=== PATIENT | female | born 1965 | race Caucasian/White ===

== ENCOUNTER 2018-10-15 21:00 | Inpatient (IN) | payer SELFPAY ==
--- NOTE | 2018-10-15 22:29 | ULT ---
[place] [facility] [place] upper quadrant ultrasound: 10/15/2018 COMPARISON: None HISTORY: Chest pain and abdominal pain TECHNIQUE: Multiplanar grayscale sonographic imaging of the right upper quadrant obtained. FINDINGS: Imaged pancreas is unremarkable. However, the majority of the body and tail are obscured by bowel gas. The hepatic parenchyma is heterogeneous and echogenic, suggesting a degree of steatosis. The common b ile duct is dilated, measuring at least 8 mm. Sludge is seen layering within the gallbladder. The gallbladder wall is mildly thickened measuring 3- 4 mm. No gallstones are seen. The post doc fellowship reports a positive Melo's sign. Right kidney measures 12.9 cm in craniocaudal dimension and demonstrates no evidence for stone, hydro nephrosis, or mass lesion. IMPRESSION: Mild gallbladder wall thickening with a positive Melo sign and gallbladder sludge. No c holelithiasis. Findings may signify acalculus cholecystitis. Pancreas is not well assessed on this ex am. The CBD is dilated, which may signify nonvisualized choledocholithiasis.
[2018-10-16 01:48] LABS: #Basophils 0.1 thou/uL (0.0-0.2); #Eosinphils 0.1 thou/uL (0.0-0.7); #Lymphocytes 2.2 thou/uL (1.20-3.40); #Monocytes 0.5 thou/uL (0.11-0.59); #Neutrophils 7.4 thou/uL (1.40-6.50); %Basophils 0.5 % (0.0-1.0); %Eosinophils 0.7 % (0.0-10.0); %Lymphocytes 21.6 % (21.0-51.0); %Monocytes 5.1 % (0.0-10.0); Hemoglobin 12.1 g/dL (12.0-16.0); Mean Corpuscular HGB CONC 34.4 g/dL (32.0-36.0); Mean Corpuscular Hemoglobin 30.1 pg (27.0-31.0); Mean Corpuscular Volume 87.3 fL (78.0-98.0); Mean Platelet Volume 6.6 fL (7.4-10.4); Platelet Count 200 thou/uL (130-400); RBC Distribution Width 12.3 % (11.5-14.5); Red Blood Cell (RBC) Count 4.03 mill/uL (4.20-5.40); White Blood Cell (WBC) Count 10.3 thou/uL (4.8-10.8)
[2018-10-16 02:11] LABS: ALT (SGPT) 272 U/L (8-55); AST (SGOT) 168 U/L (5-34); Albumin 3.6 g/dL (3.5-5.0); Alkaline Phosphatase 152 U/L (40-150); Anion Gap 11 mmol/L (10-20); BUN (Urea Nitrogen) 7 mg/dL (9.8-20.1); Bilirubin, Total 0.8 mg/dL (0.2-1.2); Calc. Creatinine Clearance 0 mL/min (70-130); Carbon Dioxide 24 mmol/L (22-29); Chloride 107 mmol/L (98-107); Estimated GFR-MDRD Greater than 90; Globulin 2.6 g/dL (2.4-3.5); Glucose 133 mg/dL (70-105); Potassium 3.2 mmol/L (3.5-5.1); Protein, Total 6.2 g/dL (6.0-8.3); Sodium 139 mmol/L (136-145)
[2018-10-16] MEDS ORDERED: Acetaminophen 325 MG TAB PO PRN ×2 (02:23→07:43)
[2018-10-16] MEDS ORDERED: Ondansetron PF 4 MG/2 ML Vial IVP PRN ×2 (02:23→07:43)
[2018-10-16] MEDS ORDERED: Sodium Chloride 0.9% 1,000 ML IV SCH (02:23)
[2018-10-16] MEDS ORDERED: Ondansetron ODT 4 MG TAB SL PRN (02:23)
[2018-10-16 02:56] VITALS: BMI 35.2
[2018-10-16] MEDS ORDERED: Piperacillin/Tazobactam 3.375 GM in Sodium Chloride 0.9% 100 ML IVPB SCH (03:00)
[2018-10-16] MEDS ORDERED: Ondansetron ODT 4 MG TAB PO PRN (07:43)
[2018-10-16] MEDS ORDERED: Calcium Carbonate 500 MG ChewTAB PO PRN (07:43)
[2018-10-16] MEDS ORDERED: Sodium Chloride 0.65% Nasal 44 ML BOT EA NARE PRN (07:43)
[2018-10-16] MEDS ORDERED: Diabetic Tussin 200 MG/10 ML UDCUP PO PRN (07:43)
[2018-10-16] MEDS ORDERED: Zolpidem Tartrate 5 MG TAB PO PRN (07:43)
[2018-10-16] MEDS ORDERED: HYDROcodone/Acetaminophen 5/325 mg Tablet PO PRN (07:43)
[2018-10-16] MEDS ORDERED: hydrALAZINE 20 MG/ML VIAL SLOW IVP PRN (07:43)
[2018-10-16] MEDS ORDERED: Cepastat Lozenges 1 LOZ PO PRN (07:43)
[2018-10-16] MEDS ORDERED: Eucerin (Mineral Oil/Petrolatum,White) 30 gm Jar TOP PRN (07:43)
[2018-10-16] MEDS ORDERED: Dextrose 5% in Water 1,000 ML IV PRN (07:43)
[2018-10-16] MEDS ORDERED: Loperamide HCl 2 MG CAP PO PRN (07:43)
[2018-10-16] MEDS ORDERED: Bisacodyl 5 MG TAB PO PRN (07:43)
[2018-10-16] MEDS ORDERED: Cyclobenzaprine 10 MG TAB PO PRN (07:43)
[2018-10-16] MEDS ORDERED: Senokot S 8.6-50 MG TAB PO PRN (07:43)
[2018-10-16] MEDS ORDERED: Dextrose 50% Abboject 50 ML SYRINGE SLOW IVP PRN (07:43)
[2018-10-16] MEDS ORDERED: HumaLOG 300 UNITS/3 ML VIAL SC PRN ×2 (07:43)
[2018-10-16] MEDS ORDERED: Bisacodyl 10 MG SUPP PR PRN (07:43)
[2018-10-16] MEDS ORDERED: Artificial Tears 18 DROP/0.9 ML EA EYE PRN (07:43)
[2018-10-16] MEDS ORDERED: Morphine 4 MG/ML VIAL SLOW IVP PRN (07:43)
[2018-10-16] MEDS ORDERED: Loratadine 10 MG TAB PO PRN (07:43)
[2018-10-16] MEDS ORDERED: Famotidine 20 MG TAB PO SCH (09:00)
[2018-10-16] MEDS: Polyethylene Glycol 3350 17 GM Packet PO SCH (10:01)
[2018-10-16] MEDS: Saccharomyces boulardii 250 MG CAP PO SCH (10:01)
[2018-10-16] MEDS: Amlodipine 5 MG TAB PO SCH (10:02)
[2018-10-16] MEDS: Enoxaparin Sodium 40 MG/0.4 ML SYRINGE SC SCH (10:02)
[2018-10-16] MEDS: Aspirin 81 mg Enteric Coated Tablet PO SCH (10:02)
[2018-10-16] MEDS: Famotidine/PF 20 mg/2ml Vial SLOW IVP SCH ×2 (10:02→19:26)
[2018-10-16] MEDS: Atorvastatin Calcium 20 MG TAB PO SCH (10:02)
[2018-10-16] MEDS: 1/2 NS w/KCL 20 mEq 1,000 ML IV SCH ×3 (10:10→23:44)
[2018-10-16 10:29] LABS: Magnesium 1.5 mg/dL (1.6-2.6); Phosphorus 3.4 mg/dL (2.3-4.7)
[2018-10-16 10:43] LABS: Lipase 1452 U/L (8-78)
[2018-10-16] MEDS ORDERED: Ondansetron PF 4 MG/2 ML Vial ONE (10:44)
[2018-10-16] MEDS ORDERED: Dexamethasone 20 MG/5 ML VIAL ONE (10:44)
[2018-10-16] MEDS ORDERED: Ketorolac Tromethamine 30 MG/ML VIAL ONE (10:44)
[2018-10-16] MEDS ORDERED: PROPOFOL 200 MG/20 ML VIAL ONE (10:44)
[2018-10-16] MEDS ORDERED: Rocuronium Bromide 10 MG/ML (10ML VIAL) ONE (10:44)
[2018-10-16] MEDS ORDERED: Lidocaine 1% PF 5 ML VIAL ONE (10:44)
[2018-10-16] MEDS ORDERED: Glycopyrrolate 0.2 MG/ML 5 ML SYRINGE ONE (10:44)
[2018-10-16] MEDS ORDERED: Magnesium Sulfate 3 GM in Sodium Chloride 0.9% 100 ML IVPB SCH (11:15)
--- NOTE | 2018-10-16 11:23 | HP ---
PRIMARY CARE PHYSICIAN: [facility] Call admission. REASON FOR ADMISSION: Acute pancreatitis. HISTORY OF PRESENT ILLNESS: A 53-year-old female who initially went to [facility] for acute onset of abdominal pain in the right upper quadrant, which was radiating to back as well as to the chest, dull aching in nature, 7 x 10 in intensity, pressure-like feeling, associated fever, nausea, and diarrhea. The patient also had associated chills. Pain was gradually gotten worse during daytime and that is why she decided to go to emergency room in the evening time at [place]. The patient had routine blood test done and the patient was found with acute pancreatitis. The patient was febrile with a temperature of 101.3. She was having right upper quadrant pain and tenderness. She was given IV fluids, Zosyn, morphine, Zofran. She also had CT abdomen and pelvis, which showed gallbladder wall thickening and CBD was dilated. When I saw this patient in the morning, the patient has somewhat improvement in her pain. She is afebrile, but the patient is still feeling nauseated. She denies any alcohol abuse. She denies any UTI symptoms. She does have chronic constipation from chronic pain medication. She denies any recent travel or sick exposure. She denies any flu-like symptoms. REVIEW OF SYSTEMS: CONSTITUTIONAL: Negative for weight loss or gain, ability to conduct usual activities. SKIN: Negative for rash, itching. EYES: Negative for double vision, pain. ENT/MOUTH: Negative for nose bleeding, neck stiffness, pain, tenderness. CARDIOVASCULAR: Negative for palpitations, dyspnea on exertion, orthopnea. RESPIRATORY: Negative for shortness of breath, wheezing, cough, hemoptysis, fever or night sweats. GASTROINTESTINAL: Negative for poor appetite, abdominal pain, heartburn, nausea, vomiting, constipation, or diarrhea. GENITOURINARY: Negative for urgency, frequency, dysuria, nocturia. MUSCULOSKELETAL: Negative for pain, swelling. NEUROLOGIC/PSYCHIATRIC: Negative for anxiety, depression. ALLERGY/IMMUNOLOGIC: Negative for skin rash, bleeding tendency. Please see my HPI for pertinent positives and negatives. All other review of systems reviewed and negative except as mentioned in HPI. PAST MEDICAL HISTORY: Chronic low back pain, osteoarthritis, diabetes type 2, gastroesophageal reflux disease, obesity, hypertension, and dyslipidemia. PAST SURGICAL HISTORY: Hysterectomy, tubal ligation. PAST PSYCHIATRIC HISTORY: Anxiety and depression. SOCIAL HISTORY: The patient is smoking variable amount of cigarette daily. She denies any alcohol abuse. She denies any other illicit drug abuse. FAMILY HISTORY: No strong family history of premature coronary artery disease, stroke, or cancer. ALLERGIES: BACTRIM DS, TETANUS TOXOID. CURRENT HOME MEDICATIONS: 1. Amlodipine 5 mg p.o. daily. 2. Aspirin 81 mg daily. 3. Lipitor 20 mg daily. 4. Flexeril 10 mg t.i.d. 5. Glipizide 5 mg b.i.d. 6. Bigfoot 7.5, one or two tablets q.6 hourly p.r.n. 7. Mobic 15 mg p.o. as directed. 8. Metformin 1500 mg p.o. at bedtime. 9. Methadone 20 mg t.i.d. 10. Multivitamin one tablet p.o. daily. 11. MiraLAX 17 g p.o. daily. 12. Potassium chloride 10 mEq p.o. b.i.d. EMERGENCY ROOM COURSE: The patient was given IV fluid, Zofran, Zosyn, and morphine at [facility]. PHYSICAL EXAMINATION: VITAL SIGNS: On arrival, blood pressure 153/81, pulse 121, respiratory rate 20, temperature 101.3, saturation 94% on room air. Weight 81.6 kg. GENERAL: The patient is currently alert, awake. No obvious acute distress. HEENT: Head; normocephalic, atraumatic. Eyes; pupils round, reactive to light. Extraocular muscle intact. No nystagmus. No icterus. ENT; oropharynx within normal limits. Somewhat dry appearing mucous membranes. No oral lesion. No pharyngeal erythema. No exudate. NECK: Supple. No JVD. No thyromegaly. No carotid bruit. No jugular venous distention. LUNGS: Clear to auscultation without any rhonchi or rales. CARDIAC: S1, S2 regular. No murmur. No gallop. No rub. ABDOMEN: Soft, the patient does have epigastric tenderness. Melo sign positive. No organomegaly. No mass. No suprapubic tenderness. BACK EXAMINATION: Unremarkable. No CVA tenderness. EXTREMITIES: Upper extremities; passive movement of all joints are normal. Lower extremity, no edema. Good distal pulsation. SKIN: No skin rash. HEMATOLOGICAL SYSTEM: No lymphadenopathy. NEUROLOGIC: Nonfocal examination. SIGNIFICANT LABORATORY DATA: EKG showing sinus tachycardia. CT abdomen and pelvis reviewed by me and consistent with dilated CBD, gallbladder wall thickening and pancreatitis. CBC; WBC 14.1, hemoglobin 13.8, platelet 198, with left shift. D-dimer 1.08. BMP; sodium 137, potassium 3.2, chloride 100, carbon dioxide 22, BUN 10, creatinine 0.65, glucose 154, calcium 8.9. LFT; bilirubin 0.7, AST 419, ALT 432, alkaline phosphatase 223, lipase 1416. BNP less than 10. Cardiac enzyme negative. Albumin 4.3. Urinalysis normal. Lactic acid 1.9. Abdominal ultrasound showed similar finding with dilated bile duct. ASSESSMENT AND PLAN: 1. Acute cholecystitis. 2. Acute pancreatitis. 3. Acute choledocholithiasis. 4. Sepsis due to problem #1. 5. Abnormal LFT due to problem #1, #2 and #3. 6. Hypokalemia. 7. Intractable abdominal pain due to problem #1, #2 and #3. 8. Hypertension. 9. Dyslipidemia. 10. Diabetes type 2. 11. Chronic pain disorder. 12. Chronic constipation. 13. Chronic low back pain. PLAN: Full admission to medical floor. Consultation with tab cutter for ERCP. Consultation with General Surgery for laparoscopic cholecystectomy. Keep n.p.o. and continue with IV fluid with NS with KCl at 125 mL/h. Continue Zosyn 3.375 g IV q.6 hourly. Pain control with morphine and Toradol on p.r.n. basis. We will start selected home medication while in hospital. Incentive spirometry advised. Smoking cessation counseling given. Healthy lifestyle measure discussed with the patient. Deep venous thrombosis prophylaxis with Lovenox 40 mg subcu daily, GI prophylaxis with Pepcid 20 mg p.o. or IV b.i.d. CODE STATUS: The patient is full code. The patient does not have any surrogate decision maker. DISPOSITION PLAN: Based on clinical course, we will repeat all labs tomorrow. Plan of care discussed with the patient and family member at bedside. Job ID: [id number]
[2018-10-16] MEDS ORDERED: Iothalamate Meglumine 60% 50 ML VIAL FS ONE (12:00)
[2018-10-16] MEDS ORDERED: Indomethacin 50 MG SUPP ONE (12:00)
[2018-10-16] MEDS ORDERED: Sodium Chloride 0.9% 100 ML ONE (12:08)
[2018-10-16] MEDS ORDERED: Piperacillin/Tazobactam 3.375 GM VIAL ONE (12:08)
[2018-10-16] MEDS ORDERED: Fentanyl 100 MCG/2 ML VIAL ONE (12:09)
[2018-10-16] MEDS ORDERED: Ketamine 50 MG/ML (10ML VIAL) ONE (12:39)
[2018-10-16] MEDS ORDERED: SUGAMMADEX SODIUM 200 MG/2 ML VIAL ONE (13:20)
[2018-10-16] MEDS ORDERED: Promethazine HCl 25 MG/ML VIAL IM PRN (13:43)
[2018-10-16] MEDS ORDERED: Ondansetron HCl/PF 4 MG/2 ML Vial IVP PRN (13:43)
[2018-10-16] MEDS ORDERED: Promethazine HCl 25 MG/ML VIAL SLOW IVP PRN (13:43)
--- NOTE | 2018-10-16 13:59 | CON ---
DATE OF CONSULTATION: 10/16/2018 REASON FOR CONSULTATION: Concern for choledocholithiasis. HISTORY OF PRESENT ILLNESS: Sirena Drake is a very pleasant 53-year-old woman with a history of arthritis, chronic back pain, diabetes, and hypertension as well as anxiety. She does smoke, but denies alcohol or drug use. She does take methadone. She denies any prior history of biliary, pancreatic, or liver problems. Yesterday afternoon somewhat acutely she had the onset of severe upper abdominal pain and nausea. She went to the ER in [place] and was febrile there. Laboratory studies demonstrated elevation of transaminases with AST 419, ALT 432, and total bilirubin 0.7. Lipase was also elevated to 1416. She had a CT of the abdomen and pelvis there, which demonstrated peripancreatic edema consistent with pancreatitis and also enhancement of the biliary system with common bile duct measured 6 mm. She was transferred here due to concern for cholecystitis and choledocholithiasis. Here, an abdominal ultrasound demonstrated gallbladder thickening as well as sludge. The common bile duct was noted to be dilated to at least 8 mm on ultrasound here. She was started on Zosyn and has been receiving supportive treatment with analgesics and IV fluids. She says that symptoms have significantly improved with the analgesics. She was able to get some sleep last night. Abdominal pain persists this morning but is significantly better. She is afebrile this morning. LFTs remain elevated, though there has been some decline with AST now 168, ALT 272. REVIEW OF SYSTEMS: Full review of systems including constitutional; head, eyes, ears, nose, and throat; GI; ; cardiovascular; respiratory; musculoskeletal; neurologic systems are negative except as noted in the HPI. PAST MEDICAL HISTORY: Arthritis, low back pain, diabetes, hypertension, hyperlipidemia, GERD, hysterectomy, and anxiety. ALLERGIES: BACTRIM AND TETANUS TOXIN. OUTPATIENT MEDICATIONS: 1. Methadone. 2. Flexeril. 3. Meloxicam. SOCIAL HISTORY: No alcohol or drug use. She does smoke. FAMILY HISTORY: Noncontributory. PHYSICAL EXAMINATION: VITAL SIGNS: Temperature 99.3, blood pressure 116/73, pulse 90, and 92% oxygen saturation on room air. GENERAL: A 53-year-old woman, overweight, sitting up in bed comfortably, in no acute distress. SKIN: No jaundice. No rashes were palpable. EYES: No scleral icterus. Extraocular movements are intact. ENT: Mucous membranes are moist. No oral lesions. LYMPH: No submandibular or supraclavicular lymphadenopathy. THYROID: Nontender to palpation. HEART: Regular rate and rhythm. LUNGS: Clear to auscultation bilaterally. ABDOMEN: Nondistended. Bowel sounds are hypoactive. ABDOMEN: Soft, but tender to palpation in the epigastrium. No guarding or rebound tenderness. EXTREMITIES: No peripheral edema. VESSELS: Radial pulses 2+ bilaterally. NEURO: Cranial nerves II through XII intact bilaterally. No focal deficits. LABORATORY STUDIES: WBC 10.3, hemoglobin 12.1, and platelets 200. Sodium 139, potassium 3.2, BUN 7, and creatinine 0.5. Lipase 1416. Lactic acid 0.9. Initial LFTs showed alkaline phosphatase 223, now down to 152; AST initially 419, now down to 168; ALT initially 432, now down to 272; and total bilirubin initially 0.7, now 0.8. IMAGING STUDIES: CT of the abdomen and pelvis demonstrated pancreatic edema consistent with acute pancreatitis. There is what appears to be 2 duodenal diverticula. The common bile duct was 6 mm, but the biliary system had abnormal enhancement. There was an adrenal nodule measuring 2.2 cm. Abdominal ultrasound showed gallbladder thickening and sludge. Common bile duct measuring at least 8 mm on that exam. Chest x-ray showed no acute processes. ASSESSMENT AND PLAN: 1. Biliary pancreatitis. 2. Probable choledocholithiasis, based on elevated LFTs and biliary dilation on imaging. The patient's presentation is overall consistent with biliary pancreatitis. I suspect that she does have some sludge within the common bile duct, which induced the episode and also cause the biliary dilation and LFT elevation. Continue with supportive care including IV fluids and antibiotics. She has been started on Zosyn. I agree with surgical consultation for consideration of cholecystectomy. We will plan to proceed with ERCP for clearance of the bile duct, hopefully later today. I discussed the procedure in detail with the patient and she desires to proceed. Thank you for the consultation. Please call anytime with questions or concerns. Job ID: [id number]
[2018-10-16] MEDS: Piperacillin/Tazobactam 3.375 GM in Sodium Chloride 0.9% 100 ML IVPB SCH ×3 (14:25→23:44)
--- NOTE | 2018-10-16 18:00 | OP ---
DATE OF PROCEDURE: 10/16/2018 BEHAVIORAL SCIENCES DEPARTMENT CHAIR SURGEON: None. PROCEDURES PERFORMED: Endoscopic retrograde cholangiopancreatography, incomplete, due to failed cannulation. INDICATION: 1. Suspected choledocholithiasis, based on elevated LFTs and common bile duct dilation on imaging. 2. Biliary pancreatitis. MEDICATIONS: 1. See Anesthesia record. 2. Indomethacin 100 mg per rectum. FINDINGS: After discussion of the risks, benefits, and alternatives of the procedure, informed consent was obtained and witnessed. Pre-endoscopic cardiopulmonary examination was satisfactory. Time-out was performed before sedation was achieved. Sedation was achieved with Anesthesia assistance in the endoscopy unit. The patient was placed in a prone position on the fluoroscopy table, endotracheally intubated under general anesthesia. A Pentax adult side-viewing duodenoscope was advanced beyond the mouth, esophagus and stomach and into the second portion of the duodenum. In the second portion of the duodenum at the expected location of the ampulla, there was a very deep diverticulum, but with a somewhat narrow opening. I was unable to actually visualize the ampulla in this area. Careful examination of the entire area both at this site and proximally and distally did not demonstrate any other location of the ampulla. There was some bile coming from the area of the diverticulum, and try as I might, I was unable to really get a good look within the diverticulum, but I do suspect that the ampulla lies within the diverticulum itself. Due to this anatomic abnormality, I was unable to cannulate the common bile duct. The upper endoscope was completely withdrawn suctioning out excess air and fluid, and the procedure was completed. The patient tolerated the procedure well. There were no immediate postprocedure complications. IMPRESSION: 1. Deep periampullary diverticulum with narrow opening, suspect the ampulla lies within the diverticulum, unable to cannulate secondary to this anatomic abnormality. 2. Otherwise normal exam. RECOMMENDATIONS: 1. Continue to trend LFTs. 2. Continue supportive care for pancreatitis. 3. Proceed with surgical evaluation. I would recommend that intraoperative cholangiogram be performed at the time of cholecystectomy. If the cholangiogram was positive, then repeat attempt at ERCP would need to be arranged at a tertiary center. Job ID: [id number]
[2018-10-16] MEDS: Ketorolac Tromethamine 30 MG/ML VIAL IVP PRN (20:10)
--- NOTE | 2018-10-16 22:55 | PDOC.GSPN ---
Surgery Progress Note: Subj - Subjective Narrative: Pt w presumed gallstone pancreatitis; ERCP today unsuccessful due to ampulla location inside duodenal diverticulum. D/w'd pt the problem and possible approaches; lap manju here w transfer to [place] to Dr Marie if ERCP needed, or transfer to [place] for lap manju there w ERCP or possible lap CBD exploration if needed. Pt prefers transfer to [place]. D/w'd Dr Marie who will arrange transfer to [facility] tomorrow. Surgery Progress Note: Obj - Vital signs Vital signs: Vital Signs - Most Recent Temp Pulse Resp BP Pulse Ox 98.1 F 105 H 20 142/82 H 96 10/16/18 19:35 10/16/18 19:35 10/16/18 19:35 10/16/18 19:35 10/16/18 20:00 Surgery Progress Note: Results - Labs Result Diagrams: 10/16/18 01:41 10/16/18 01:41 Lab results: Laboratory Results - last 24 hr 10/16/18 10/16/18 10/16/18 11:41 16:14 19:34 POC Glucose 166 H 203 H 197 H POC Glucose (other) 10/16/18 21:23 POC Glucose POC Glucose (other) 203 H
[2018-10-17] MEDS: Ketorolac Tromethamine 30 MG/ML VIAL IVP PRN ×3 (02:38→12:54)
[2018-10-17] MEDS: Piperacillin/Tazobactam 3.375 GM in Sodium Chloride 0.9% 100 ML IVPB SCH ×2 (06:10→11:00)
[2018-10-17] MEDS: Atorvastatin Calcium 20 MG TAB PO SCH (08:05)
[2018-10-17] MEDS: Saccharomyces boulardii 250 MG CAP PO SCH (08:05)
[2018-10-17] MEDS: Amlodipine 5 MG TAB PO SCH (08:06)
[2018-10-17] MEDS: Famotidine/PF 20 mg/2ml Vial SLOW IVP SCH (08:06)
[2018-10-17 08:10] LABS: #Lymphocytes 1.6 thou/uL (1.20-3.40); #Monocytes 0.3 thou/uL (0.11-0.59); #Neutrophils 4.3 thou/uL (1.40-6.50); %Basophils 0.6 % (0.0-1.0); %Eosinophils 0.5 % (0.0-10.0); %Lymphocytes 26.2 % (21.0-51.0); %Neutrophils 68.8 % (42.0-75.0); Mean Corpuscular HGB CONC 34.3 g/dL (32.0-36.0); Mean Corpuscular Hemoglobin 30.1 pg (27.0-31.0); Mean Corpuscular Volume 87.7 fL (78.0-98.0); Mean Platelet Volume 7.2 fL (7.4-10.4); Platelet Count 184 thou/uL (130-400); RBC Distribution Width 12.3 % (11.5-14.5); Red Blood Cell (RBC) Count 4.33 mill/uL (4.20-5.40); White Blood Cell (WBC) Count 6.2 thou/uL (4.8-10.8)
[2018-10-17 08:32] LABS: ALT (SGPT) 169 U/L (8-55); AST (SGOT) 46 U/L (5-34); Alkaline Phosphatase 136 U/L (40-150); Anion Gap 11 mmol/L (10-20); BUN (Urea Nitrogen) 9 mg/dL (9.8-20.1); Bilirubin, Total 0.5 mg/dL (0.2-1.2); Calc. Creatinine Clearance 141 mL/min (70-130); Carbon Dioxide 24 mmol/L (22-29); Chloride 107 mmol/L (98-107); Estimated GFR-MDRD Greater than 90; Globulin 3.2 g/dL (2.4-3.5); Glucose 181 mg/dL (70-105); Potassium 3.7 mmol/L (3.5-5.1); Protein, Total 7.2 g/dL (6.0-8.3); Sodium 138 mmol/L (136-145)
[2018-10-17 09:17] LABS: Magnesium 2.5 mg/dL (1.6-2.6)
[2018-10-17] MEDS: Aspirin 81 mg Enteric Coated Tablet PO SCH (10:16)
[2018-10-17] MEDS: Polyethylene Glycol 3350 17 GM Packet PO SCH (10:16)
--- NOTE | 2018-10-17 10:32 | PDOC.PN ---
- Subjective Encounter Start Date: 10/17/18 Encounter Start Time: 08:30 -: old records requested/rev Patient seen and examined. No new complaints. No overnight events - Objective Resuscitation Status - Order Detail: 10/16/18 07:35 Resuscitation Status Routine Resuscitation Status: FULL: Full Resuscitation MAR Reviewed: Yes Vital Signs & Weight: Vital Signs (12 hours) Temp Pulse Resp BP BP Pulse Ox 10/17/18 08:06 88 10/17/18 07:27 97.8 F 88 18 134/85 95 10/17/18 04:51 97.7 F 83 20 147/87 H 92 L 10/16/18 23:55 97.7 F 96 16 124/75 93 L Weight Weight 180 lb 9.6 oz I&O: 10/16/18 10/17/18 10/18/18 06:59 06:59 06:59 Intake Total 1490 Balance 1490 Result Diagrams: 10/17/18 07:44 10/17/18 07:45 Additional Labs: Accuchecks 10/17/18 10/16/18 10/16/18 04:55 19:34 16:14 POC Glucose 189 H 197 H 203 H 10/16/18 11:41 POC Glucose 166 H Phys Exam - Physical Examination Constitutional: NAD HEENT: PERRLA, moist MMs, sclera anicteric, oral pharynx no lesions Neck: no JVD, supple Respiratory: no wheezing, no rales, no rhonchi Cardiovascular: RRR, no significant murmur, no rub Gastrointestinal: soft, no distention, positive bowel sounds Musculoskeletal: no edema, pulses present Neurological: non-focal, normal sensation, moves all 4 limbs Lymphatic: no nodes Psychiatric: normal affect, A&O x 3 Skin: no rash, normal turgor Dx/Plan (1) Acute biliary pancreatitis Code(s): K85.10 - BILIARY ACUTE PANCREATITIS WITHOUT NECROSIS OR INFECTION Status: Acute (2) Choledocholithiasis with acute cholecystitis Code(s): K80.42 - CALCULUS OF BILE DUCT W ACUTE CHOLECYSTITIS W/O OBSTRUCTION Status: Acute (3) Hypokalemia Code(s): E87.6 - HYPOKALEMIA Status: Acute (4) Hypomagnesemia Code(s): E83.42 - HYPOMAGNESEMIA Status: Acute (5) Sepsis Code(s): A41.9 - SEPSIS, UNSPECIFIED ORGANISM Status: Acute (6) Chronic low back pain Code(s): M54.5 - LOW BACK PAIN; G89.29 - OTHER CHRONIC PAIN Status: Chronic (7) Chronic pain disorder Code(s): G89.4 - CHRONIC PAIN SYNDROME Status: Chronic (8) Diabetes type 2, controlled Code(s): E11.9 - TYPE 2 DIABETES MELLITUS WITHOUT COMPLICATIONS Status: Chronic (9) Dyslipidemia Code(s): E78.5 - HYPERLIPIDEMIA, UNSPECIFIED Status: Chronic (10) Hypertension Code(s): I10 - ESSENTIAL (PRIMARY) HYPERTENSION Status: Chronic (11) Obesity (BMI 30-39.9) Code(s): E66.9 - OBESITY, UNSPECIFIED Status: Chronic - Plan cont current plan of care, plan discussed w/ family, continue antibiotics * ercp not successful * pt is planned for transfer to other hospital * medication reviewed as below * symptomatic treatment * continue current management. Review of Systems - Review of Systems ENT: negative: Ear Pain, Ear Discharge, Nose Pain, Nose Discharge, Nose Congestion, Mouth Pain, Mouth Swelling, Throat Pain, Throat Swelling, Other Respiratory: negative: Cough, Dry, Shortness of Breath, Hemoptysis, SOB with Excertion, Pleuritic Pain, Sputum, Wheezing Cardiovascular: negative: chest pain, palpitations, orthopnea, paroxysmal nocturnal dyspnea, edema, light headedness, other Gastrointestinal: negative: Nausea, Vomiting, Abdominal Pain, Diarrhea, Constipation, Melena, Hematochezia, Other Genitourinary: negative: Dysuria, Frequency, Incontinence, Hematuria, Retention , Other Musculoskeletal: negative: Neck Pain, Shoulder Pain, Arm Pain, Back Pain, Hand Pain, Leg Pain, Foot Pain, Other - Medications/Allergies Allergies/Adverse Reactions: Allergies Allergy/AdvReac Type Severity Reaction Status Date / Time sulfamethoxazole Allergy Verified 10/16/18 02:41 [From Bactrim] Tetanus Vaccines and Toxoid Allergy Verified 10/16/18 02:41 trimethoprim [From Bactrim] Allergy Verified 10/16/18 02:41 Medications: Current Medications Acetaminophen (Tylenol) 650 mg PO Q4H PRN PRN Reason: Headache/Fever/Mild Pain (1-3) Hydrocodone Bitart/Acetaminophen ([place] 5/325) 1 tab PO Q4H PRN PRN Reason: Moderate Pain (4-6) Amlodipine Besylate (Norvasc) 5 mg PO DAILY [facility] Last Admin: 10/17/18 08:06 Dose: 5 mg Artificial Tears (Tears Naturale) 2 drop EA EYE PRN PRN PRN Reason: Dry Eyes Aspirin (Ecotrin) 81 mg PO DAILY [facility] Last Admin: 10/17/18 10:16 Dose: Not Given Atorvastatin Calcium (Lipitor) 20 mg PO DAILY [facility] Last Admin: 10/17/18 08:05 Dose: 20 mg Bisacodyl (Dulcolax) 10 mg PO DAILYPRN PRN PRN Reason: Constipation Bisacodyl (Dulcolax) 10 mg CO DAILYPRN PRN PRN Reason: Constipation Calcium Carbonate (Tums) 1,000 mg PO Q4H PRN PRN Reason: Heartburn or Indigestion Cyclobenzaprine HCl (Flexeril) 10 mg PO TID PRN PRN Reason: Muscle Spasm Dextrose/Water (Dextrose 50%) 25 gm SLOW IVP PRN PRN PRN Reason: Hypoglycemia Enoxaparin Sodium (Lovenox) 40 mg SC 0900 [facility] Last Admin: 10/16/18 10:02 Dose: 40 mg Famotidine (Pepcid) 20 mg SLOW IVP Q12HR [facility] Last Admin: 10/17/18 08:06 Dose: 20 mg Glucagon (Glucagon) 1 mg IM PRN PRN PRN Reason: Hypoglycemia Guaifenesin (Robitussin Sf) 200 mg PO Q4H PRN PRN Reason: Cough Hydralazine HCl (Apresoline) 10 mg SLOW IVP Q4H PRN PRN Reason: SBP > 180 and HR < 70 Piperacillin Sod/Tazobactam (Sod 3.375 gm/ Sodium Chloride) 100 mls @ 200 mls/ hr IVPB Q6HR [facility] Last Admin: 10/17/18 08:17 Dose: 100 mls Potassium Chloride/Sodium Chloride (1/2 Ns W/Kcl 20 Meq) 1,000 mls @ 125 mls/ hr IV .Q8H [facility] Last Admin: 10/16/18 23:44 Dose: 1,000 mls Dextrose/Water (D5w) 1,000 mls @ 0 mls/hr IV .Q0M PRN PRN Reason: Hypoglycemia Insulin Human Lispro (Humalog) 0 units SC .MODERATE SLIDING SC PRN PRN Reason: Moderate Correctional Scale Insulin Human Lispro (Humalog) 0 units SC .BEDTIME SLIDING SC PRN PRN Reason: Bedtime Correctional Scale Ketorolac Tromethamine (Toradol) 15 mg IVP Q6H PRN PRN Reason: Pain Stop: 10/21/18 07:44 Last Admin: 10/17/18 08:08 Dose: 15 mg Loperamide HCl (Imodium) 2 mg PO PRN PRN PRN Reason: Diarrhea/Loose Stools Loratadine (Claritin) 10 mg PO DAILYPRN PRN PRN Reason: Sinus Symptoms Mineral Oil/White Petrolatum (Eucerin Cream) 0 gm TOP BIDPRN PRN PRN Reason: Dry Skin Morphine Sulfate (Morphine) 4 mg SLOW IVP Q4H PRN PRN Reason: Severe Pain (7-10) Ondansetron HCl (Zofran Odt) 4 mg PO Q6H PRN PRN Reason: Nausea/Vomiting Ondansetron HCl (Zofran) 4 mg IVP Q6H PRN PRN Reason: Nausea/Vomiting Polyethylene Glycol (Miralax) 17 gm PO DAILY [facility] Last Admin: 10/17/18 10:16 Dose: Not Given Saccharomyces Boulardii (Florastor) 250 mg PO DAILY [facility] Last Admin: 10/17/18 08:05 Dose: 250 mg Senna/Docusate Sodium (Senokot S) 2 tab PO BID PRN PRN Reason: Constipation Sodium Chloride ([place] Nasal [place] 0.65%) 0 ml EA NARE QIDPRN PRN PRN Reason: Nasal Congestion Throat Lozenges (Cepastat Lozenges) 1 conrado PO Q2H PRN PRN Reason: Sore Throat Zolpidem Tartrate (Ambien) 5 mg PO HSPRN PRN PRN Reason: Insomnia
[2018-10-17] MEDS: Enoxaparin Sodium 40 MG/0.4 ML SYRINGE SC SCH (12:56)
[2018-10-17] MEDS: 1/2 NS w/KCL 20 mEq 1,000 ML IV SCH ×2 (12:56→15:28)
[2018-10-17 15:39] VITALS: BP 143/84; TEMP 98.4
--- NOTE | 2018-10-18 21:20 | DIS ---
DATE OF ADMISSION: 10/16/2018 DATE OF DISCHARGE: 10/17/2018 DISCHARGE DISPOSITION: [facility]. PRIMARY DISCHARGE DIAGNOSES: 1. Acute biliary pancreatitis. 2. Choledocholithiasis with acute cholecystitis. 3. Hypokalemia. 4. Hypomagnesemia. 5. Sepsis. SECONDARY DISCHARGE DIAGNOSES: Obesity with BMI 35, hypertension, dyslipidemia, diabetes type 2, chronic pain disorder, chronic low back pain. PRIMARY PROCEDURE/OPERATION: ERCP was tried by Dr. Luevano, it was unsuccessful. RADIOLOGICAL INVESTIGATION: CT abdomen and pelvis was done at [facility]. Abdominal ultrasound was done in our hospital. SIGNIFICANT LABORATORY DATA: Hemoglobin 13.0, creatinine 0.59, lipase 156. DISCHARGE MEDICATIONS: The patient is discharged to [facility]. Subsequently, the patient will continue her own previous medication. The patient was on following medications prior to admission: 1. Amlodipine 5 mg daily. 2. Aspirin 81 mg daily. 3. Lipitor 20 mg daily. 4. Flexeril 10 mg t.i.d. 5. Glipizide 5 mg b.i.d. 6. [place] one or two tablets q.6 hourly p.r.n. 7. Metformin 1500 mg at bedtime. 8. Methadone 20 mg t.i.d. 9. Multivitamin one tablet daily. 10. MiraLAX 17 g daily. 11. Potassium chloride 10 mEq p.o. b.i.d. 12. Garlic one tablet daily. 13. Mobic 15 mg as directed. CONTRAINDICATION: None. CODE STATUS: Full code. INPATIENT VENEER SHEET REPAIRER: 1. Dr. Leonard. 2. Dr. Luevano. TEST RESULTS PENDING ON DISCHARGE: None. ALLERGIES: SULFA DRUGS. TETANUS TOXOID. DISCHARGE PLAN: Posthospital, the patient is discharged to [facility] for higher level of care. Subsequently, the patient will follow up with primary care physician. HOSPITAL COURSE: A 53-year-old female who was admitted by me. Please see my HPI for further details. The patient was initially presented to other emergency room with acute onset of right upper quadrant and epigastric pain, which was creating to back, which was consistent with acute pancreatitis, which was diagnosed based on CT imaging. She also had gallbladder wall thickening as the CBD dilated which was consistent with choledocholithiasis as well as acute cholecystitis. The patient was treated with Zosyn while in hospital. She was treated in standard fashion with n.p.o., IV fluid and pain control with narcotic. We consulted check services clerk and they tried to do ERCP, but it was unsuccessful. General Surgery was consulted and they discussed with the patient about the different treatment option and the patient selected to go to [facility] for further ERCP. The patient's hospital course was discussed with the hospitalist at [facility] and the patient was approved to go there. The patient was seen and examined on the day of discharge. Please see my progress note from that day for more detail. Job ID: [id number]
== END 2018-10-17 16:12 | disposition short-term general hospital (02) | DRG 871 ==
LOC: ERS 21:00 → T4-A 10-16 02:20
PROVIDERS: ADMIT Internal Medicine; ATTEND Internal Medicine
PROC: 0FJB8ZZ Inspection of Hepatobiliary Duct, Via Natural or Artificial Opening Endoscopic (ICD-10-PCS; principal; 2018-10-16)
DX: A41.9 Sepsis, unspecified organism (principal); K85.10 Biliary acute pancreatitis without necrosis or infection; K80.42 Calculus of bile duct with acute cholecystitis without obstruction; M19.90 Unspecified osteoarthritis, unspecified site; E11.9 Type 2 diabetes mellitus without complications; K21.9 Gastro-esophageal reflux disease without esophagitis; E78.5 Hyperlipidemia, unspecified; I10 Essential (primary) hypertension; E66.9 Obesity, unspecified; M54.5 Low back pain; F41.9 Anxiety disorder, unspecified; F32.9 Major depressive disorder, single episode, unspecified; E87.6 Hypokalemia; K83.8 Other specified diseases of biliary tract; K57.10 Diverticulosis of small intestine without perforation or abscess without bleeding; F17.210 Nicotine dependence, cigarettes, uncomplicated; G89.29 Other chronic pain; K59.09 Other constipation; E83.42 Hypomagnesemia; Z79.84 Long term (current) use of oral hypoglycemic drugs; Z79.82 Long term (current) use of aspirin; Z88.1 Allergy status to other antibiotic agents; Z88.7 Allergy status to serum and vaccine; Z79.899 Other long term (current) drug therapy; Z68.35 Body mass index [BMI] 35.0-35.9, adult; Z90.710 Acquired absence of both cervix and uterus; Z98.51 Tubal ligation status
CPT/HCPCS: 36415; 36416; 76000; 76705; 80053; 83605; 83690; 83735; 84100; 85025; 86140; J1100; J1650; J1885; J2001; J2405; J2543; J2704; J3010; J3475; J3480; J7050; Q9961; S0028

== ENCOUNTER 2018-10-21 19:43 | Inpatient (IN) | payer SELFPAY ==
[2018-10-22 01:47] VITALS: BMI 33.7
[2018-10-22] MEDS ORDERED: Cepastat Lozenges 1 LOZ PO PRN (07:34)
[2018-10-22] MEDS ORDERED: HYDROcodone/Acetaminophen 5/325 mg Tablet PO PRN (07:34)
[2018-10-22] MEDS ORDERED: Artificial Tear Sol 15 ML BOT EA EYE PRN (07:34)
[2018-10-22] MEDS ORDERED: Diabetic Tussin 200 MG/10 ML UDCUP PO PRN (07:34)
[2018-10-22] MEDS ORDERED: Loperamide HCl 2 MG CAP PO PRN (07:34)
[2018-10-22] MEDS ORDERED: hydrALAZINE 20 MG/ML VIAL SLOW IVP PRN (07:34)
[2018-10-22] MEDS ORDERED: Senokot S 8.6-50 MG TAB PO PRN (07:34)
[2018-10-22] MEDS ORDERED: Ondansetron ODT 4 MG TAB PO PRN (07:34)
[2018-10-22] MEDS ORDERED: Bisacodyl 10 MG SUPP PR PRN (07:34)
[2018-10-22] MEDS ORDERED: Zolpidem Tartrate 5 MG TAB PO PRN (07:34)
[2018-10-22] MEDS ORDERED: Ondansetron PF 4 MG/2 ML Vial IVP PRN (07:34)
[2018-10-22] MEDS ORDERED: Acetaminophen 325 MG TAB PO PRN (07:34)
[2018-10-22] MEDS ORDERED: Sodium Chloride 0.65% Nasal 44 ML BOT EA NARE PRN (07:34)
[2018-10-22] MEDS ORDERED: Loratadine 10 MG TAB PO PRN (07:34)
[2018-10-22] MEDS ORDERED: Eucerin (Mineral Oil/Petrolatum,White) 30 gm Jar TOP PRN (07:34)
[2018-10-22] MEDS ORDERED: Calcium Carbonate 500 MG ChewTAB PO PRN (07:34)
[2018-10-22] MEDS ORDERED: Sodium Chloride 0.9% 1,000 ML IV SCH (07:45)
[2018-10-22 08:07] VITALS: TEMP 97.9
[2018-10-22 08:13] LABS: #Eosinphils 0.2 thou/uL (0.0-0.7); #Monocytes 0.4 thou/uL (0.11-0.59); #Neutrophils 3.1 thou/uL (1.40-6.50); %Basophils 0.6 % (0.0-1.0); %Eosinophils 3.6 % (0.0-10.0); %Lymphocytes 44.2 % (21.0-51.0); %Monocytes 5.9 % (0.0-10.0); %Neutrophils 45.7 % (42.0-75.0); Hemoglobin 14.7 g/dL (12.0-16.0); Mean Corpuscular HGB CONC 34.3 g/dL (32.0-36.0); Mean Corpuscular Hemoglobin 29.1 pg (27.0-31.0); Mean Corpuscular Volume 84.9 fL (78.0-98.0); Mean Platelet Volume 6.4 fL (7.4-10.4); Platelet Count 265 thou/uL (130-400); RBC Distribution Width 12.4 % (11.5-14.5); Red Blood Cell (RBC) Count 5.05 mill/uL (4.20-5.40); White Blood Cell (WBC) Count 6.7 thou/uL (4.8-10.8)
[2018-10-22 08:33] LABS: ALT (SGPT) 86 U/L (8-55); AST (SGOT) 30 U/L (5-34); Albumin 4.3 g/dL (3.5-5.0); Alkaline Phosphatase 141 U/L (40-150); Anion Gap 14 mmol/L (10-20); BUN (Urea Nitrogen) 4 mg/dL (9.8-20.1); Bilirubin, Total 0.7 mg/dL (0.2-1.2); Calc. Creatinine Clearance 131 mL/min (70-130); Carbon Dioxide 25 mmol/L (22-29); Chloride 103 mmol/L (98-107); Estimated GFR-MDRD Greater than 90; Globulin 3.3 g/dL (2.4-3.5); Glucose 142 mg/dL (70-105); Potassium 3.3 mmol/L (3.5-5.1); Protein, Total 7.6 g/dL (6.0-8.3); Sodium 139 mmol/L (136-145)
[2018-10-22] MEDS ORDERED: Famotidine 20 MG TAB PO SCH (09:00)
[2018-10-22] MEDS ORDERED: Enoxaparin Sodium 40 MG/0.4 ML SYRINGE SC SCH (09:00)
[2018-10-22] MEDS ORDERED: Famotidine/PF 20 mg/2ml Vial SLOW IVP SCH (09:00)
[2018-10-22] MEDS ORDERED: NS 0.9% w/ 40 MEQ KCL 1,000 ML IV SCH (10:00)
[2018-10-22] MEDS ORDERED: Fentanyl 250 MCG/5 ML VIAL ONE (10:03)
[2018-10-22] MEDS ORDERED: Acetaminophen 1,000 MG in Premix Bag 1 BAG IVPB SCH (10:15)
[2018-10-22] MEDS ORDERED: Ketorolac Tromethamine 30 MG/ML VIAL IVP SCH (10:15)
[2018-10-22] MEDS ORDERED: Bupivacaine/Epinephrine 0.25% 30 ML VIAL ONE (10:16)
[2018-10-22] MEDS ORDERED: Iothalamate Meglumine 60% 50 ML VIAL FS ONE (10:25)
[2018-10-22] MEDS ORDERED: Levofloxacin 500 mg/D5W 100 ml Premix Bag ONE (10:49)
[2018-10-22] MEDS ORDERED: Ketorolac Tromethamine 30 MG/ML VIAL ONE (10:50)
--- NOTE | 2018-10-22 10:51 | HP ---
HISTORY OF PRESENT ILLNESS: Sirena Drake is a 53-year-old female, who presented to this hospital with cholecystitis, choledocholithiasis with failed attempted ERCP, was transferred to [facility], Dr. Pabon, who accomplished ERCP, sphincterotomy, stone extraction. She is now transferred back to our facility for laparoscopic cholecystectomy. She is n.p.o., admitted to the medical service today. PAST SURGICAL HISTORY: Hysterectomy without oophorectomy. ALLERGIES: SULFA AND TETANUS. SOCIAL HISTORY: Tobacco, she vapes. Alcohol, socially. MEDICATIONS: 1. Garlic. 2. Metformin. 3. Glipizide. 4. MiraLAX. 5. Multivitamins. 6. Mobic. 7. Methadone 20 t.i.d. 8. Flexeril 10 t.i.d. 9. Atorvastatin 20 daily. 10. Aspirin 81 mg a day. 11. Amlodipine daily. She has never had a colonoscopy. REVIEW OF SYSTEMS: Ten-point noncontributory. No cardiac symptoms. No cardiac evaluations in the past. PHYSICAL EXAMINATION: VITAL SIGNS: 173 pounds, 5 feet, 33 BMI, 97.9, 85, 151/83. GENERAL: The patient is obese. LUNGS: Clear to auscultation. CARDIAC: Regular rate and rhythm without murmur or gallop. ABDOMEN: Soft and nontender. EXTREMITIES: Unremarkable. LABORATORY DATA: White count 6 and hemoglobin 14. Basic metabolic profile normal. ASSESSMENT AND PLAN: Cholecystitis and cholelithiasis. We would recommend laparoscopic video cholecystectomy. I have discussed with her and her son's risks of operation, infection, bleeding, reoperation, she consents. Questions were answered. Job ID: [id number]
[2018-10-22] MEDS ORDERED: Ibuprofen 600 MG TAB PO PRN (12:15)
[2018-10-22] MEDS ORDERED: traMADol HCl 50 MG TAB PO PRN ×2 (12:15)
[2018-10-22] MEDS ORDERED: Acetaminophen 500 MG TAB PO PRN (12:15)
[2018-10-22] MEDS ORDERED: Ondansetron HCl/PF 4 MG/2 ML Vial IVP PRN (12:20)
[2018-10-22] MEDS ORDERED: Promethazine HCl 25 MG/ML VIAL IM PRN (12:20)
[2018-10-22] MEDS ORDERED: Promethazine HCl 25 MG/ML VIAL SLOW IVP PRN (12:20)
[2018-10-22] MEDS ORDERED: Fentanyl 100 MCG/2 ML VIAL ONE ×3 (12:28→13:34)
[2018-10-22] MEDS ORDERED: Promethazine HCl 25 MG/ML VIAL ONE (12:33)
--- NOTE | 2018-10-22 12:57 | RAD ---
INTRAOPERATIVE CHOLANGIOGRAM 2 VIEWS: DATE: 10/22/2018. HISTORY: A 53-year-old female undergoing cholecystectomy for right upper quadrant abdominal pain. FINDINGS: There is contrast material in the duodenum. Contrast is also spilled adjacent to the right lobe of t he liver. There is diffuse dilation of the common bile duct, and common hepatic duct. This tapers, without filling defect or obstruction, at the ampulla. Intrahepatic biliary ducts or biliary radical s are obscured. IMPRESSION: 1. Mild dilation of common duct. 2. No high-grade obstruction or filling defect identified. POS: TPC
--- NOTE | 2018-10-22 13:24 | DIS ---
DATE OF ADMISSION: 10/22/2018 DATE OF DISCHARGE: 10/22/2018 DISCHARGE DISPOSITION: Home. PRIMARY DISCHARGE DIAGNOSES: 1. Acute biliary pancreatitis. 2. Choledocholithiasis, status post endoscopic retrograde cholangiopancreatography. 3. Acute cholecystitis, status post laparoscopic cholecystectomy. 4. Hypokalemia, corrected. SECONDARY DISCHARGE DIAGNOSES: Obesity with BMI 33, hypertension, dyslipidemia, diabetes type 2, chronic low back pain, chronic pain disorder. PRIMARY PROCEDURE/OPERATION: Laparoscopic cholecystectomy. RADIOLOGICAL INVESTIGATION: Cholangiogram, operative. SIGNIFICANT LABORATORY DATA: CBC normal. LFT normal other than ALT 86, and potassium 3.3. DISCHARGE MEDICATIONS: 1. Amlodipine 5 mg p.o. daily. 2. Aspirin 81 mg daily. 3. Lipitor 20 mg p.o. daily. 4. Flexeril 10 mg t.i.d. p.r.n. 5. Garlic one tablet daily. 6. Glipizide 5 mg b.i.d. 7. Mobic 15 mg p.o. as directed. 8. Metformin 1500 mg p.o. at bedtime. 9. Methadone 20 mg t.i.d. 10. Multivitamin one tablet daily. 11. MiraLAX 17 g p.o. daily. 12. Potassium chloride 10 mEq p.o. b.i.d. 13. [place] 2 tablets q.6 hourly p.r.n. 14. Tramadol 50 mg q.6 hourly p.r.n. 15. Ibuprofen 600 mg p.o. q.6 hourly p.r.n. CONTRAINDICATION: None. CODE STATUS: Full code. INPATIENT OVEN HEATER: Dr. Luevano and Dr. Mariscal. ALLERGIES: SULFA DRUGS AND TETANUS TOXOID. DISCHARGE PLAN: Posthospital, the patient will follow up with Dr. Mariscal in 2 to 3 weeks. HOSPITAL COURSE: The patient was admitted for acute biliary pancreatitis. The patient was treated conservatively. She did require ERCP in our hospital, but it was not successful and that is why patient was sent to [facility]. ERCP and sphincterotomy were done and subsequently, the patient was transferred back to our hospital. We consulted General Surgery for laparoscopic cholecystectomy, which was done today. The patient otherwise doing very well and is stable for discharge. The patient was admitted and discharged on the same day. Job ID: [id number]
--- NOTE | 2018-10-22 13:28 | HP ---
REASON FOR ADMISSION: Acute biliary pancreatitis. HISTORY OF PRESENT ILLNESS: A 53-year-old female, who was recently admitted in our hospital on October 16, 2018. At that time, I admitted this patient and please see my HPI from that admission for more details. She was admitted for acute onset of right upper quadrant and epigastric abdominal pain, which was radiating to back and she was diagnosed with acute pancreatitis. She had abnormal gallbladder ultrasound as well as abnormal CT abdomen and pelvis. She was found with choledocholithiasis with cholecystitis and finding was consistent with acute biliary pancreatitis. She was treated in standard fashion with n.p.o., pain control with narcotics, and IV fluid for hydration. She was also given empiric antibiotic therapy because she was meeting sepsis criteria. Gastroenterology Team was consulted and they did try to do ERCP, but it was unsuccessful. General Surgery was also consulted. This patient decided to go to [facility] for ERCP and we made arrangement to go there for ERCP. After procedure, the patient was transferred back to our hospital. Cholecystectomy, which was supposed to be done, which was not done in that hospital and that is why the patient is being admitted for laparoscopic cholecystectomy. Currently, the patient is completely asymptomatic. She is feeling much better. She has no nausea, vomiting, or abdominal pain. She denies any fever or chills. She denies any UTI symptoms. She denies any constipation, diarrhea, melena, or hematochezia. REVIEW OF SYSTEMS: CONSTITUTIONAL: Negative for weight loss or gain, ability to conduct usual activities. SKIN: Negative for rash, itching. EYES: Negative for double vision, pain. ENT/MOUTH: Negative for nose bleeding, neck stiffness, pain, tenderness. CARDIOVASCULAR: Negative for palpitations, dyspnea on exertion, orthopnea. RESPIRATORY: Negative for shortness of breath, wheezing, cough, hemoptysis, fever or night sweats. GASTROINTESTINAL: Negative for poor appetite, abdominal pain, heartburn, nausea, vomiting, constipation, or diarrhea. GENITOURINARY: Negative for urgency, frequency, dysuria, nocturia. MUSCULOSKELETAL: Negative for pain, swelling. NEUROLOGIC/PSYCHIATRIC: Negative for anxiety, depression. ALLERGY/IMMUNOLOGIC: Negative for skin rash, bleeding tendency. Please see my HPI for pertinent positive and negative. All other review of systems reviewed and negative except as mentioned in the HPI. PAST MEDICAL HISTORY: Diabetes type 2, osteoarthritis, chronic low back pain, gastroesophageal reflux disease, obesity, hypertension, and dyslipidemia. PAST SURGICAL HISTORY: Hysterectomy, tubal ligation, and ERCP. PAST PSYCHIATRIC HISTORY: Anxiety and depression. FAMILY HISTORY: No strong family history of premature coronary artery disease, stroke, or cancer. ALLERGIES: BACTRIM DS, TETANUS TOXOID. SOCIAL HISTORY: The patient smokes a variable amount of cigarettes every day basis. She denies any alcohol abuse. She denies any other illicit drug abuse. CURRENT HOME MEDICATIONS: 1. Amlodipine 5 mg p.o. daily. 2. Aspirin 81 mg daily. 3. Lipitor 20 mg daily. 4. Flexeril 10 mg t.i.d. 5. Glipizide 5 mg b.i.d. 6. [place] 7.5 one or two tablets q.6 hourly p.r.n. 7. Mobic 15 mg p.o. p.r.n. 8. Metformin 1500 mg p.o. at bedtime. 9. Methadone 20 mg b.i.d. 10. Multivitamin 1 tablet daily. 11. MiraLAX 17 g p.o. daily. 12. Potassium chloride 10 mEq p.o. b.i.d. PHYSICAL EXAMINATION: VITAL SIGNS: On arrival, blood pressure 148/85, temperature 97.7, pulse 84, respiratory rate 16, and saturation 98% on room air. Weight 173 pounds. GENERAL: The patient is currently alert, awake, in no obvious acute distress. HEENT: Head; normocephalic, atraumatic. Eyes; pupils are round and reactive to light. Extraocular muscle intact. ENT; oropharynx within normal limits. Moist mucous membranes. No oral lesion. No pharyngeal erythema. No exudate. NECK: Supple. No JVD. No thyromegaly. No carotid bruit. No jugular venous distention. LUNGS: Clear to auscultation without any rhonchi or rales. CARDIAC: S1 and S2, regular. No murmur. No gallop. No rub. ABDOMEN: Soft. Bowel sounds present. Nontender. Nondistended. No organomegaly. No mass. No suprapubic tenderness. BACK: Unremarkable. No CVA tenderness. EXTREMITIES: Upper extremities; passive movement of all joints are normal. Lower extremities; no edema. Good distal pulsation. SKIN: No skin rash. HEMATOLOGICAL SYSTEM: No lymphadenopathy. NEUROLOGIC: Nonfocal examination. SIGNIFICANT LABORATORY DATA: CBC; WBC 6.7, hemoglobin 14.7, and platelet 265. BMP; sodium 139, potassium 3.3, BUN 4, creatinine 0.61, glucose 142, calcium 10.0, AST 30, ALT 86, alkaline phosphatase 141, and albumin 4.3. ASSESSMENT: 1. Acute biliary pancreatitis, status post endoscopic retrograde cholangiopancreatography and sphincterotomy. 2. Choledocholithiasis with acute cholecystitis, status post endoscopic retrograde cholangiopancreatography and status post laparoscopic cholecystectomy. 3. Hypokalemia. We will replace IV fluid with potassium. 4. Chronic low back pain. 5. Chronic pain disorder. 6. Diabetes, type 2. 7. Hypertension. 8. Dyslipidemia. 9. Obesity with BMI 33. 10. Deep venous thrombosis prophylaxis, Lovenox 40 mg subcu daily. Gastrointestinal prophylaxis, Pepcid 20 mg p.o. b.i.d. PLAN: Admission to the hospital. General Surgery consultation. Laparoscopic cholecystectomy. Keep n.p.o. Continue IV fluids. Pepcid 20 mg IV b.i.d., pain control with pain medication p.r.n. CONTRAINDICATION: None. CODE STATUS: Full code. INPATIENT PAN RECLAIM PROCESSOR: Dr. Luevano and Dr. Mariscal. DISCHARGE PLAN: Posthospital, the patient will follow up with Dr. Mariscal and Dr. Luevano. Job ID: [id number]
[2018-10-22] MEDS ORDERED: HYDROcodone/Acetaminophen 7.5/325 mg Tablet PO PRN (14:29)
[2018-10-22 14:32] VITALS: BP 175/94
[2018-10-22] MEDS ORDERED: METHadone HCl 10 MG TAB PO SCH (15:00)
[2018-10-22] MEDS ORDERED: Cyclobenzaprine 10 MG TAB PO SCH (15:00)
[2018-10-22] MEDS ORDERED: Dexamethasone 20 MG/5 ML VIAL ONE (15:26)
[2018-10-22] MEDS ORDERED: PROPOFOL 200 MG/20 ML VIAL ONE (15:26)
[2018-10-22] MEDS ORDERED: Ondansetron PF 4 MG/2 ML Vial ONE (15:26)
[2018-10-22] MEDS ORDERED: Rocuronium Bromide 10 MG/ML (10ML VIAL) ONE (15:26)
[2018-10-22] MEDS ORDERED: Glycopyrrolate 0.2 MG/ML 5 ML SYRINGE ONE (15:26)
[2018-10-22] MEDS ORDERED: glipiZIDE 5 MG TAB PO SCH (16:30)
--- NOTE | 2018-10-22 18:32 | OP ---
DATE OF PROCEDURE: 10/22/2018 PREOPERATIVE DIAGNOSES: Biliary pancreatitis, choledocholithiasis, status post ERCP. Marvel Felton (could not do ERCP here for technical reasons). POSTOPERATIVE DIAGNOSES: Biliary pancreatitis choledocholithiasis, status post ERCP. Marvel Felton (could not do ERCP here for technical reasons). PROCEDURES PERFORMED: Laparoscopic video cholecystectomy, normal cholangiogram. ANESTHESIA: General, local 0.5% Marcaine with epinephrine 30 mL. DESCRIPTION OF PROCEDURE: The patient was taken to the operating room, where under general anesthesia, abdomen was prepared with ChloraPrep and draped in routine fashion. Local anesthetic was infiltrated in the skin and subcutaneous tissue about each port site. Infraumbilical incision was made. Pneumoperitoneum to 15 mmHg was obtained with a Veress needle, replaced with a 5 port, video laparoscope inserted. Right subxiphoid incision was made and [address] Right subcostal incision was made, midclavicular entrance line and the 5 ports placed. Liver appeared to be normal. Gallbladder had multiple stones. Fundus of the gallbladder was grasped at the cephalad. Infundibulum grasped and reflected laterally. Cystic artery and duct dissected free. Critical view obtained. Cystic artery doubly clipped proximally. Cystic duct singly clipped on the gallbladder side. Cholangiogram was obtained using fluoroscopy, revealing normal common hepatic, common bile duct, and right hepatic ducts without filling defects. There was prompt emptying into the duodenum. Cholangiocatheter was removed, cystic duct doubly clipped. Cystic artery and duct divided. Gallbladder dissected free from liver bed, obtaining good hemostasis prior to division of the final peritoneal attachments. Gallbladder and contents removed and submitted to pathology. Good hemostasis ensured. All instruments were removed. All skin incisions were approximated with interrupted subdermal 4-0 Monocryl and Dermaglue applied. The patient tolerated the procedure well. Job ID: [id number]
[2018-10-22] MEDS ORDERED: metFORMIN 500 MG TAB PO SCH (21:00)
[2018-10-22] MEDS ORDERED: Atorvastatin Calcium 20 MG TAB PO SCH (21:00)
[2018-10-22] MEDS ORDERED: Potassium Chloride 10 MEQ TAB PO SCH (21:00)
[2018-10-23] MEDS ORDERED: GARLIC PO SCH (09:00)
[2018-10-23] MEDS ORDERED: Multivit, Therapeutic 1 TAB PO SCH (09:00)
[2018-10-23] MEDS ORDERED: Polyethylene Glycol 3350 17 GM Packet PO SCH (09:00)
[2018-10-23] MEDS ORDERED: Aspirin 81 mg Enteric Coated Tablet PO SCH (09:00)
[2018-10-23] MEDS ORDERED: Meloxicam 15 MG TAB PO SCH (09:00)
[2018-10-23] MEDS ORDERED: Amlodipine 5 MG TAB PO SCH (09:00)
== END 2018-10-22 16:50 | disposition home or self-care (01) | DRG 417 ==
LOC: SURG B 10-22 01:17
PROVIDERS: ADMIT Internal Medicine; ATTEND Internal Medicine
PROC: 0FT44ZZ Resection of Gallbladder, Percutaneous Endoscopic Approach (ICD-10-PCS; principal; 2018-10-22)
PROC: BF100ZZ Fluoroscopy of Bile Ducts using High Osmolar Contrast (ICD-10-PCS; 2018-10-22)
DX: K80.00 Calculus of gallbladder with acute cholecystitis without obstruction (principal); K85.10 Biliary acute pancreatitis without necrosis or infection; E87.6 Hypokalemia; E66.9 Obesity, unspecified; I10 Essential (primary) hypertension; E78.5 Hyperlipidemia, unspecified; E11.9 Type 2 diabetes mellitus without complications; G89.29 Other chronic pain; M54.5 Low back pain; F41.9 Anxiety disorder, unspecified; F32.9 Major depressive disorder, single episode, unspecified; Z90.710 Acquired absence of both cervix and uterus; Z88.2 Allergy status to sulfonamides; Z88.7 Allergy status to serum and vaccine; Z79.82 Long term (current) use of aspirin; Z68.31 Body mass index [BMI] 31.0-31.9, adult; Z98.51 Tubal ligation status
CPT/HCPCS: 36415; 47532; 80053; 85025; 88304; J0131; J1100; J1610; J1650; J1885; J1956; J2405; J2550; J2704; J3010; Q9961

== ENCOUNTER 2024-07-05 09:39 | Outpatient (CLI) | payer OTHER | END 2024-07-05 09:40 | disposition home or self-care (01) | LOC: BICMAMMO 09:39 | PROVIDERS: ATTEND Registered Nurse | DX: Z12.31 Encounter for screening mammogram for malignant neoplasm of breast (principal); M81.0 Age-related osteoporosis without current pathological fracture; M85.89 Other specified disorders of bone density and structure, multiple sites; Z78.0 Asymptomatic menopausal state; Z80.3 Family history of malignant neoplasm of breast; Z91.89 Other specified personal risk factors, not elsewhere classified | CPT/HCPCS: 77063; 77067; 77080 ==